=== PATIENT | male | born 1995 | race African-American/Black ===

== ENCOUNTER 2021-10-08 20:17 | Emergency (ER) | payer OTHER, SELFPAY ==
[2021-10-08 20:20] VITALS: BP 134/75; PULSE 93; RESP 16; TEMP 36.7; O2SAT 99; BMI 22.1
--- NOTE | 2021-10-08 20:30 | DI.RAD.S_ITS ---
PROCEDURE: XR ANKLE RT MIN 3V INDICATIONS: lower leg pain TECHNIQUE: 3 views of the ankle were acquired. COMPARISON: None. FINDINGS: Bones: No fractures or dislocations. Ankle mortise is normally aligned. No suspicious bony lesions. Soft tissues: No tibiotalar joint effusion. Achilles tendon appears normal. IMPRESSION: No acute osseous abnormality. Dictated by: Abdulkadir Gonzalez M.D. on 10/08/2021 at 21:37 Approved by: Abdulkadir Gonzalez M.D. on 10/08/2021 at 21:38
--- NOTE | 2021-10-08 21:52 | ED_ITS ---
HPI - Extremity Injury (Lower) General Chief Complaint: Extremity Injury, Lower Stated Complaint: CalosAchilles Time Seen by Provider: 10/08/21 21:45 Source: patient Mode of arrival: EMS History of Present Illness HPI Narrative: 26-year-old male here for evaluation of a suspected right Achilles tendon injury. Patient was playing basketball when he pushed off in order to get a rebound during the game. [place] a pop. Has been unable to ambulate since then. Was placed in a air cast by EMS otherwise no specific intervention. No prior injuries to his right ankle. Related Data Allergies Allergy/AdvReac Type Severity Reaction Status Date / Time No Known Drug Allergies Allergy Verified 10/08/21 20:20 Review of Systems Constitutional Constitutional: Reports system reviewed and no additional complaints, except as documented Musculoskeletal Comments: Right ankle pain Integumentary/Breasts Skin/Breast: Reports system reviewed and no additional complaints, except as documented Neurologic Neurologic: Reports system reviewed and no additional complaints, except as documented Hematologic/Lymphatic On Anticoagulants: No Patient History Medical History Healthy adult Social History Smoking Status: Never smoker Smoking Status: Never smoker Substance Use Type: does not use Exam Initial Vital Signs Initial Vital Signs: Vital Signs Temperature 98.1 F 10/08/21 20:20 Pulse Rate 93 H 10/08/21 20:20 Respiratory Rate 16 10/08/21 20:20 Blood Pressure 134/75 10/08/21 20:20 Pulse Oximetry 99 10/08/21 20:20 Const General: cooperative and healthy appearing HENMI Head: normal to inspection and normocephalic Cardio Pulses: dorsalis pedis present on the right Skin General: no rashes or lesions noted Neuro Sensory Exam: no sensory deficits noted Extrem Other: Right knee is unremarkable. Patient does have a palpable deficit in the Achilles tendon on the right and is unable to plantar flex his right foot. The rest of his right foot exam is unremarkable. Procedures Orthopedic Splinting/Casting Injury #1: Side: right Lower Extremity Injury Location: ankle Lower Extremity Immobilizer: posterior splint Post splinting neuro exam: intact Post splinting vascular exam: intact Placed by: Nursing Course Orders Ordered: ED Orders 10/08/21 20:30 XR ankle RT min 3V Stat Vital Signs Vital signs: Vital Signs - 8 hr 10/08/21 20:20 10/08/21 22:29 Temperature 98.1 F Pulse Rate 93 H 78 Respiratory Rate 16 Blood Pressure 134/75 133/70 Pulse Oximetry 99 99 MDM - Extremity Injury (Lower) Imaging Data Extremity x-ray #1: Radiologist's Impression: [address] [address] XRay Report Signed Patient: Andrea Hoff MR#: [id number] : 1995 Acct:[id number] Age/Sex: 26 / M Date of Service: 10/08/21 Loc: ED Accession Number: [id number] ?? Procedure: XR ankle RT min 3V Ordering Provider: Akshat Ribera D.O. PROCEDURE:? XR ANKLE RT MIN 3V ? INDICATIONS:? lower leg pain ? TECHNIQUE:? 3 views of the ankle were acquired.? ? COMPARISON:? None. ? FINDINGS:? ? Bones:? No fractures or dislocations.? Ankle mortise is normally aligned.? No suspicious bony lesions.? ? Soft tissues:? No tibiotalar joint effusion.? Achilles tendon appears normal.? ? ? IMPRESSION:? No acute osseous abnormality. ? Dictated by: Abdulkadir Gonzalez M.D. on 10/08/2021 at 21:37 ? ? Approved by: Abdulkadir Gonzalez M.D. on 10/08/2021 at 21:38?? [facility] [place] Narrative Medical decision making narrative: Patient is neurovascularly intact. X-ray shows no fractures. It does have a palpable deficit of his right Achilles tendon the rest of his physical exam is consistent with this as well. He was placed in a posterior splint in plantar flexion of his right ankle. Crutches to make him nonweightbearing. Was given a copy of his x-rays on a CD. Contact the orthopedic providers on the [facility] tomorrow for a follow-up. He was given return precautions. He expressed understanding and agreement. Discharge Plan Departure Patient Disposition: Home Clinical Impression: Achilles tendon rupture Instructions: How to Use Crutches, How to Take Care of Your Splint, DI for Achilles Tendon Rupture Activity Restrictions/Additional Instructions: The splinting does need to stay on stay clean and stay dry. You do need to treat it like a cast. Use the crutches like we discussed. Tomorrow contact your medical department and also the orthopedic department on the [facility] for a follow-up. Return to the emergency department for any new or worsening symptoms. Referrals: Pieter Shah [Primary Care Provider] -
[2021-10-08 22:29] VITALS: BP 133/70; PULSE 78; O2SAT 99
== END 2021-10-08 22:30 | disposition home or self-care (01) ==
PROVIDERS: Emergency Provider Emergency Medicine
DX: S86.011A Strain of right Achilles tendon, initial encounter (principal); X50.9XXA Other and unspecified overexertion or strenuous movements or postures, initial encounter; Y93.67 Activity, basketball
CPT/HCPCS: 73610; 99281; 99283